=== PATIENT | female | born 1950 | race Caucasian/White ===

== ENCOUNTER 2019-07-11 11:46 | Emergency (ER) | payer MEDICARE, MEDICAID ==
[~2019-07-11] VITALS: Ht 172.7 cm; Wt 65.0 kg
[2019-07-11] MEDS ORDERED: TEMA15CA5 PO (11:59)
[2019-07-11] MEDS ORDERED: QUET25TA PO (11:59)
[2019-07-11] MEDS ORDERED: LORA-249 PO (11:59)
[2019-07-11] MEDS ORDERED: DICYCLOMINE 10 MG/5 ML ORAL SYR PO STA (12:13)
[2019-07-11] MEDS ORDERED: VISCOUS LIDOCAINE 2% 15 ML UDC PO STA (12:13)
[2019-07-11] MEDS ORDERED: ONDANSETRON HCL 4MG/2ML INJ IV STA (12:13)
[2019-07-11] MEDS ORDERED: FAMOTIDINE 20MG/2ML VIAL IV STA (12:13)
[2019-07-11] MEDS ORDERED: MAGNESIUM/ALUMINUM HYDROXIDE/SIMETHICONE 30ML UDC PO STA (12:13)
[2019-07-11] MEDS ORDERED: KETOROLAC 30MG/ML VIAL IV ONE (12:15)
[2019-07-11 12:37] LABS: BASOPHILS % 0.5 % (0.0-2.0); EOSINOPHILS % 0.2 % (0.0-5.0); HEMATOCRIT. 44.2 % (36.0-48.0); HEMOGLOBIN. 14.9 g/dL (12.0-16.0); LYMPHOCYTES % 18.1 % (20.0-50.0); MEAN CORPUSCULAR HEMOGLOBIN 32.5 pg (28.0-32.0); MEAN CORPUSCULAR VOLUME 96.3 fL (81.0-99.0); MEAN PLATELET VOLUME 7.8 fl (7.4-10.4); NEUTROPHILS % 73.2 % (40.0-76.0); PLATELET 302 x1000/uL (130-400); RED BLOOD CELL COUNT 4.59 mill/uL (4.2-5.4); RED CELL DISTRIBUTION WIDTH 13.4 % (11.6-14.6)
[2019-07-11 12:41] LABS: CHLORIDE 104 mEq/L (98-107)
[2019-07-11 13:54] VITALS: BP 147/63
== END 2019-07-11 13:55 | disposition home or self-care (01) ==
LOC: ER 11:46
DX: M79.18 Myalgia, other site (principal)
CPT/HCPCS: 36415; 80053; 83690; 85025; 96374; 96375; 99284; J1885; J2405; J3490